=== PATIENT | female | born 1960 | race Caucasian/White ===

== ENCOUNTER → 2016-05-03 | Outpatient (CLI) | payer OTHER | LOC: VM.MRI 07:57 | PROVIDERS: ATTEND Family Medicine | DX: Z04.3 Encounter for examination and observation following other accident (principal); M47.816 Spondylosis without myelopathy or radiculopathy, lumbar region; R60.0 Localized edema; V89.2XXA Person injured in unspecified motor-vehicle accident, traffic, initial encounter | CPT/HCPCS: 72148 ==

== ENCOUNTER 2016-10-28 11:54 | Emergency (ER) | payer OTHER ==
--- NOTE | 2016-10-28 13:01 | EDM.PDOC ---
ED HPI GENERAL MEDICAL PROBLEM - General Chief Complaint: General Stated Complaint: FELL Time Seen by Provider: 10/28/16 12:24 Source of Information: Reports: Patient History Limitations: Reports: No Limitations - History of Present Illness INITIAL COMMENTS - FREE TEXT/NARRATIVE: Patient reports falling down 4 stairs this morning about an hour before coming in. She did hit her head on a shelf but did not lose consciousness, has no headaches, no nausea, no vomiting, no change in mentation or neurologic status. She did also hit her right shoulder and she does complain of some pain with movement to that as well as to her left foot. Some swelling and bruising to her foot. She has no other complaints. She did nut use anything for pain control before arriving here. Onset: Today Onset Date: 10/28/16 Onset Time: 11:00 Duration: Intermittent Location: Reports: Upper Extremity, Right, Lower Extremity, Left Quality: Reports: Ache Severity: Moderate Improves with: Reports: None Worsens with: Reports: Movement Associated Symptoms: Reports: No Other Symptoms - Related Data Allergies Allergy/AdvReac Type Severity Reaction Status Date / Time aloe vera Allergy Hives Verified 10/28/16 13:04 [From Aspercreme with Aloe] aspirin Allergy Hives Verified 10/28/16 13:04 Penicillins Allergy Anaphylactic Verified 10/28/16 13:04 Shock Sulfa (Sulfonamide Allergy Swollen Verified 10/28/16 13:04 Antibiotics) Tongue trolamine salicylate Allergy Hives Verified 10/28/16 13:04 [From Aspercreme with Aloe] levofloxacin [From Levaquin] AdvReac Muscle Verified 10/28/16 13:04 Aches Home Meds: Home Meds Amitriptyline [Elavil] 20 mg PO BEDTIME 06/10/13 [History] Benazepril [Lotensin] 40 mg PO DAILY 06/10/13 [History] Cholecalciferol (Vitamin D3) [Vitamin D] 2,000 unit PO DAILY 06/10/13 [History] Eletriptan [Relpax] 40 mg PO DAILY PRN 06/10/13 [History] Ipratropium/Albuterol Sulfate [Duoneb 0.5 MG-3 MG/3 ML] 3 ml INH QID PRN [History] PARoxetine [Paxil] 30 mg PO DAILY 06/10/13 [History] Pseudoephedrine [Sudafed 12 Hour] 120 mg PO Q12HR 06/10/13 [History] RABEprazole [Aciphex] 20 mg PO DAILY 06/10/13 [History] Topiramate [Trokendi Xr] 100 mg PO BID 06/10/13 [History] Acetaminophen/Caffeine [Excedrin Tension Headache] 3 tab PO ASDIRECTED 06/03/14 [History] Albuterol [Ventolin HFA] 1 puff PO BID PRN 06/03/14 [History] Pregabalin [Lyrica] 150 mg PO BID 06/29/14 [History] Cyclobenzaprine [Flexeril] 10 mg PO DAILY PRN 07/19/14 [History] Calcium Carbonate [Calcium] 1 tab PO DAILY 10/27/15 [History] Past Medical History - Past Surgical History Other Musculoskeletal Surgeries/Procedures:: right foot heglands deformaty 2011 Social & Family History - Tobacco Use Smoking Status *Q: Never Smoker Used Tobacco, but Quit: No Second Hand Smoke Exposure: No - Recreational Drug Use Recreational Drug Use: No ED ROS GENERAL - Review of Systems Review Of Systems: See Below Constitutional: Reports: No Symptoms HEENT: Reports: No Symptoms Respiratory: Reports: No Symptoms Cardiovascular: Reports: No Symptoms Endocrine: Reports: No Symptoms GI/Abdominal: Reports: No Symptoms : Reports: No Symptoms Musculoskeletal: Reports: Shoulder Pain (right), Foot Pain (left) Skin: Reports: Bruising Neurological: Reports: No Symptoms Psychiatric: Reports: No Symptoms Hematologic/Lymphatic: Reports: No Symptoms Immunologic: Reports: No Symptoms ED EXAM, GENERAL - Physical Exam Exam: See Below Exam Limited By: No Limitations General Appearance: Alert, WD/WN, Mild Distress Eye Exam: Bilateral Eye: EOMI, PERRL Ears: Normal TMs Nose: Normal Inspection Throat/Mouth: Normal Inspection, Normal Oropharynx Head: Atraumatic, Normocephalic Neck: Normal Inspection, Supple, Non-Tender, Full Range of Motion Respiratory/Chest: No Respiratory Distress, Lungs Clear, Normal Breath Sounds Cardiovascular: Normal Peripheral Pulses, Regular Rate, Rhythm GI/Abdominal: Normal Bowel Sounds, Soft, Non-Tender Extremities: Slow Capillary Refill, Arm Pain (right shoulder has pain on examination), Leg Pain (left foot has ecchymosis and swelling to the distal lateral aspect of the dorsal side of the foot) Neurological: Alert, Oriented, CN II-XII Intact, Normal Cognition, Normal Gait, Normal Reflexes, No Motor/Sensory Deficits Psychiatric: Normal Affect, Normal Mood Skin Exam: Warm, Dry, Intact, Ecchymosis (left distal foot) Lymphatic: No Adenopathy Course - Orders/Labs/Meds Orders: Active Orders 24 hr Category Date Time Status Ankle Min 3V Lt [CR] Stat Exams 10/28/16 12:31 Stop Req Foot Comp Min 3V Lt [CR] Stat Exams 10/28/16 12:35 Ordered Shoulder Comp Rt [CR] Stat Exams 10/28/16 12:31 Ordered - Radiology Interpretation Free Text/Narrative:: x-ray for right shoulder/left foot ordered Negative for fractures of shoulder, humerus or foot Departure - Departure Time of Disposition: 13:59 Disposition: Home, Self-Care 01 Condition: Good Clinical Impression: Contusion of foot, left - Discharge Information Instructions: Hematoma, [id number], Foot Contusion, [id number] Additional Instructions: Please follow up with your primary for any non acute causes for your nosebleeds Hold your aspirin until you see your primary You can call us with any questions or concerns Please follow the instructions provided for any future nosebleeds you may have - Problem List & Annotations (1) Contusion of foot, left SNOMED Code(s): 66273201 Code(s): S90.32XA - CONTUSION OF LEFT FOOT, INITIAL ENCOUNTER Status: Acute Priority: Low Qualifiers: Encounter type: initial encounter Qualified Code(s): S90.32XA - Contusion of left foot, initial encounter - Problem List Review Problem List Initiated/Reviewed/Updated: Yes - My Orders Last 24 Hours: My Active Orders 10/28/16 12:31 Ankle Min 3V Lt [CR] Stat Shoulder Comp Rt [CR] Stat 10/28/16 12:35 Foot Comp Min 3V Lt [CR] Stat - Assessment/Plan Last 24 Hours: My Active Orders 10/28/16 12:31 Ankle Min 3V Lt [CR] Stat Shoulder Comp Rt [CR] Stat 10/28/16 12:35 Foot Comp Min 3V Lt [CR] Stat Assessment:: contusion of left foot Plan: Please follow up with your primary for any non acute causes for your nosebleeds Hold your aspirin until you see your primary You can call us with any questions or concerns Please follow the instructions provided for any future nosebleeds you may have
[2016-10-28 13:16] VITALS: BP 116/78
== END 2016-10-28 14:10 | disposition home or self-care (01) ==
LOC: VM.ED 11:54
DX: S90.32XA Contusion of left foot, initial encounter (principal); M25.511 Pain in right shoulder; Z79.899 Other long term (current) drug therapy; Z88.0 Allergy status to penicillin; Z88.2 Allergy status to sulfonamides; Z88.1 Allergy status to other antibiotic agents; Z88.8 Allergy status to other drugs, medicaments and biological substances; Z88.6 Allergy status to analgesic agent; W10.8XXA Fall (on) (from) other stairs and steps, initial encounter
CPT/HCPCS: 73030-RT; 73630-LT; 99284

== ENCOUNTER 2018-11-13 19:14 | Emergency (ER) | payer BC, OTHER ==
--- NOTE | 2018-11-13 19:46 | EDM.PDOC ---
ED HPI GENERAL MEDICAL PROBLEM - General Chief Complaint: Lower Extremity Injury/Pain Stated Complaint: POST KNEE SURGERY PAIN Time Seen by Provider: 11/13/18 19:37 Source of Information: Reports: Patient History Limitations: Reports: No Limitations - History of Present Illness INITIAL COMMENTS - FREE TEXT/NARRATIVE: Patient comes into the emergency department with complaint of left knee discomfort. Patient recently had a scope done approximately 3 days ago. She states it's been healing well however that earlier this afternoon she started having muscle cramps in the lower leg. She did call call nurse and they suggested to be evaluated in a local emergency department. Patient states that the muscle cramping in the lower calf comes and goes. Currently the pain is gone. She denies any swelling, redness, or irrational pain. She states that she has not had any increased amount of swelling. She's had good range of motion in the lower extremity. She does have muscle relaxants at home and also has hydrocodone prescribed by her surgeon. She states that she's been taking them as prescribed however the cramping sensation in the leg is not relieved with that medication. Patient denies any injury or trauma to the lower extremity. She states that she has not fallen on it since surgery. Patient denies any other concerns or complaints. Onset: Gradual Quality: Reports: Other Severity: Mild Improves with: Reports: None, Immobilization, Other (rubbing the leg ) Worsens with: Reports: Movement Associated Symptoms: Reports: No Other Symptoms - Related Data Allergies Allergy/AdvReac Type Severity Reaction Status Date / Time aloe vera Allergy Hives Verified 01/23/17 08:45 [From Aspercreme with Aloe] aspirin Allergy Hives Verified 01/23/17 08:45 Penicillins Allergy Anaphylactic Verified 01/23/17 08:45 Shock Sulfa (Sulfonamide Allergy Swollen Verified 01/23/17 08:45 Antibiotics) Tongue trolamine salicylate Allergy Hives Verified 01/23/17 08:45 [From Aspercreme with Aloe] levofloxacin [From Levaquin] AdvReac Muscle Verified 01/23/17 08:45 Aches Home Meds: Home Meds Benazepril [Lotensin] 40 mg PO DAILY 06/10/13 [History] Cholecalciferol (Vitamin D3) [Vitamin D] 2,000 unit PO DAILY 06/10/13 [History] Eletriptan [Relpax] 40 mg PO DAILY PRN 06/10/13 [History] Ipratropium/Albuterol Sulfate [Duoneb 0.5 MG-3 MG/3 ML] 3 ml INH QID PRN [History] Pseudoephedrine [Sudafed 12 Hour] 120 mg PO Q12HR PRN 06/10/13 [History] RABEprazole [Aciphex] 20 mg PO DAILY 06/10/13 [History] Topiramate [Trokendi Xr] 100 mg PO BID 06/10/13 [History] Acetaminophen/Caffeine [Excedrin Tension Headache] 3 tab PO ASDIRECTED 06/03/14 [History] Albuterol [Ventolin HFA] 2 puff PO BID PRN 06/03/14 [History] Pregabalin [Lyrica] 150 mg PO BID 06/29/14 [History] Cyclobenzaprine [Flexeril] 10 mg PO TID PRN 07/19/14 [History] Calcium Carbonate [Calcium] 1 tab PO DAILY 10/27/15 [History] buPROPion HCl [Wellbutrin Xl] 150 mg PO DAILY 11/26/16 [History] Escitalopram [Lexapro] 10 mg PO DAILY 01/23/17 [History] Mometasone Furoate 200mcg [Asmanex HFA 200mcg] 2 puff INH BID 01/23/17 [History] Nortriptyline 25 mg PO BEDTIME 01/23/17 [History] Prednisone [IJD: Prednisone] 20 mg PO DAILY PRN 01/23/17 [History] Past Medical History Musculoskeletal History: Reports: Fibromyalgia Neurological History: Reports: Migraines Psychiatric History: Reports: Depression - Past Surgical History Female Surgical History: Reports: Other (See Below) Other Female Surgeries/Procedures: ovarian cysts/fibroids Other Musculoskeletal Surgeries/Procedures:: right foot heglands deformaty 2012 ED ROS GENERAL - Review of Systems Review Of Systems: ROS reveals no pertinent complaints other than HPI. Constitutional: Reports: No Symptoms HEENT: Reports: No Symptoms Respiratory: Reports: No Symptoms Cardiovascular: Reports: No Symptoms Endocrine: Reports: No Symptoms GI/Abdominal: Reports: No Symptoms : Reports: No Symptoms Skin: Reports: No Symptoms Neurological: Reports: No Symptoms Psychiatric: Reports: No Symptoms Hematologic/Lymphatic: Reports: No Symptoms ED EXAM, GENERAL - Physical Exam Exam: See Below Exam Limited By: No Limitations General Appearance: Alert, WD/WN, No Apparent Distress Head: Atraumatic, Normocephalic Respiratory/Chest: No Respiratory Distress, No Accessory Muscle Use Cardiovascular: Normal Peripheral Pulses, Regular Rate, Rhythm Peripheral Pulses: 3+: Popliteal (L), Popliteal (R), Dorsalis Pedis (L), Dorsalis Pedis (R) GI/Abdominal: Soft, Non-Tender, No Distention Back Exam: Normal Inspection, Full Range of Motion Extremities: Normal Range of Motion, Non-Tender, No Pedal Edema, Normal Capillary Refill, Leg Pain. No: Normal Inspection (healing puncture wounds around the knee ), Slow Capillary Refill, Joint Swelling, Dequan's Sign, Limited Range of Motion, Increased Warmth, Mottled, Pallor, Redness Neurological: Alert, Oriented Departure - Departure Time of Disposition: 19:50 Disposition: Home, Self-Care 01 Condition: Good Clinical Impression: Muscle cramp - Discharge Information *PRESCRIPTION DRUG MONITORING PROGRAM REVIEWED*: Not Applicable *COPY OF PRESCRIPTION DRUG MONITORING REPORT IN PATIENT TIMOTHY: Not Applicable Instructions: Muscle Cramps and Spasms, [id number] Referrals: Beth Young DO [Primary Care Provider] - Forms: ED Department Discharge Additional Instructions: 1. rest 2. increase water intake 3. Can take pickle juice to help with muscle cramps and bananas 4. Continue to complete your exercises as prescribed by your surgeon. 5. Compress, rest, and ice as it has been prescribed by your surgeon. 6. Take your medications muscle relaxer and pain medication as prescribed do not take more than prescribed or recommended 7. Follow up as needed or return if symptoms worsen 8. Call with any questions or concerns. - Problem List Review Problem List Initiated/Reviewed/Updated: Yes - Assessment/Plan Assessment:: 1. left leg cramps Plan: 1. [place] reviewed. Pt was given 20 tabs Hydrocodone-Acetaminaphen 5/325mg on . Lyrica 150mg 60tabs given. Pt also take muscle relaxers on a daily basis as needed. 2. Education provided and signs and symptoms given. 3. Follow up recommendation provided, activity, diet, ice, compression, medications administration as prescribed. 4. All questions and concerns addressed prior to discharge.
[2018-11-14 04:28] VITALS: BP 122/85; PULSE 108
== END 2018-11-13 19:57 | disposition home or self-care (01) ==
LOC: VM.ED 19:14
DX: R25.2 Cramp and spasm (principal); F32.9 Major depressive disorder, single episode, unspecified; Z79.899 Other long term (current) drug therapy; Z88.6 Allergy status to analgesic agent; Z88.2 Allergy status to sulfonamides; Z88.1 Allergy status to other antibiotic agents; Z88.8 Allergy status to other drugs, medicaments and biological substances
CPT/HCPCS: 99283

== ENCOUNTER 2020-03-27 12:24 | Emergency (ER) | payer BC ==
[2020-03-27] MEDS ORDERED: Sodium Chloride 0.9% 1,000 ML IV ONE ×2 (12:36→13:30)
[2020-03-27] MEDS ORDERED: Ondansetron 4 MG/2 ML SDV IV ONE (12:36)
[2020-03-27] MEDS ORDERED: Sodium Chloride 0.9% 10 ML Syringe FLUSH PRN (12:36)
[2020-03-27] MEDS ORDERED: Ondansetron 4 MG/2 ML SDV ONE (12:46)
[2020-03-27 13:14] LABS: CHLORIDE,CL 106 mmol/L (98-107); SODIUM,NA 140 mmol/L (136-145)
[2020-03-27 13:15] LABS: ANION GAP 15.2 mmol/L (10-20)
[2020-03-27 13:24] VITALS: BP 109/53; PULSE 95
--- NOTE | 2020-03-27 13:38 | EDM.PDOC ---
ED HPI GENERAL MEDICAL PROBLEM - General Chief Complaint: Gastrointestinal Problem Stated Complaint: COVID SYMPTOMS Time Seen by Provider: 03/27/20 13:25 Source of Information: Reports: Patient, RN, RN Notes Reviewed History Limitations: Reports: No Limitations - History of Present Illness INITIAL COMMENTS - FREE TEXT/NARRATIVE: Patient presents to ER with complaint of nausea, vomiting, severe diarrhea, lethargy. Patient states her has been hospitalized in [place] with Covid. States he will be released from the hospital today. States she has not eaten in the past 4 days, consistent nausea and vomiting. States she has had a cough, with some shortness of breath from time to time. Denies any chest pains. States she has had a fever from time to time, no fever today, denies chills. Patient states history of hypertension, fibromyalgia, and kidney dysfunction. Onset: Gradual Headache Pain Score (Numeric/FACES): 6 - Related Data Allergies Allergy/AdvReac Type Severity Reaction Status Date / Time aloe vera Allergy Hives Verified 03/27/20 13:09 [From Aspercreme with Aloe] aspirin Allergy Hives Verified 03/27/20 13:09 Penicillins Allergy Anaphylactic Verified 03/27/20 13:09 Shock Sulfa (Sulfonamide Allergy Swollen Verified 03/27/20 13:09 Antibiotics) Tongue trolamine salicylate Allergy Hives Verified 03/27/20 13:09 [From Aspercreme with Aloe] levofloxacin [From Levaquin] AdvReac Muscle Verified 03/27/20 13:09 Aches Home Meds: Home Meds Benazepril [Lotensin] 40 mg PO DAILY 06/10/13 [History] Cholecalciferol (Vitamin D3) [Vitamin D] 2,000 unit PO DAILY 06/10/13 [History] Eletriptan [Relpax] 40 mg PO Q2HR PRN 06/10/13 [History] Ipratropium/Albuterol Sulfate [Duoneb 0.5 MG-3 MG/3 ML] 3 ml INH QID PRN 06/10/13 [History] Pseudoephedrine [Sudafed 12 Hour] 120 mg PO Q12HR PRN 06/10/13 [History] RABEprazole [Aciphex] 20 mg PO DAILY 06/10/13 [History] Topiramate [Trokendi Xr] 100 mg PO BID 06/10/13 [History] Albuterol [Ventolin HFA] 2 puff PO Q4HR PRN 06/03/14 [History] Pregabalin [Lyrica] 150 mg PO BID 06/29/14 [History] Cyclobenzaprine [Flexeril] 10 mg PO TID 07/19/14 [History] Escitalopram [Lexapro] 20 mg PO DAILY 01/23/17 [History] Nortriptyline 25 mg PO BEDTIME 01/23/17 [History] Past Medical History Cardiovascular History: Reports: Hypertension Respiratory History: Reports: Asthma Musculoskeletal History: Reports: Fibromyalgia Neurological History: Reports: Migraines Psychiatric History: Reports: Depression - Infectious Disease History Infectious Disease History: Reports: Novel Coronavirus - Past Surgical History Female Surgical History: Reports: Other (See Below) Other Female Surgeries/Procedures: ovarian cysts/fibroids Musculoskeletal Surgical History: Reports: Arthroscopic Knee, Arthroscopic Procedure Other Musculoskeletal Surgeries/Procedures:: right foot heglands deformaty 2011 Social & Family History - Tobacco Use Tobacco Use Status *Q: Never Tobacco User ED ROS GENERAL - Review of Systems Review Of Systems: Comprehensive ROS is negative, except as noted in HPI. ED EXAM, GI/ABD - Physical Exam Exam: See Below Exam Limited By: No Limitations General Appearance: Alert, WD/WN, Lethargic, Mild Distress Eyes: Bilateral: Normal Appearance, EOMI Ears: Normal External Exam, Hearing Grossly Normal Nose: Normal Inspection Throat/Mouth: Normal Inspection, Normal Voice, No Airway Compromise Head: Atraumatic, Normocephalic Neck: Normal Inspection, Supple, Non-Tender, Full Range of Motion Respiratory/Chest: No Respiratory Distress, Lungs Clear, Normal Breath Sounds, No Accessory Muscle Use, Chest Non-Tender Cardiovascular: Normal Peripheral Pulses, Regular Rate, Rhythm, No Edema, No Gallop, No JVD, No Murmur, No Rub GI/Abdominal Exam: Normal Bowel Sounds, Soft, Tender (Female) Exam: Deferred Rectal (Female) Exam: Deferred Back Exam: Normal Inspection, Full Range of Motion, NT Extremities: Normal Inspection, Normal Range of Motion, Non-Tender, Normal Capillary Refill, No Pedal Edema Neurological: Alert, Oriented, CN II-XII Intact, Normal Cognition, Normal Gait, Normal Reflexes, No Motor/Sensory Deficits Psychiatric: Normal Affect, Normal Mood Skin Exam: Warm, Dry, Intact, Normal Color, No Rash Lymphatic: No Adenopathy Course - Vital Signs Last Recorded V/S: Last Vital Signs Temp 97.6 F 03/27/20 12:30 Pulse 95 03/27/20 12:30 Resp 16 03/27/20 12:30 BP 109/53 L 03/27/20 12:30 Pulse Ox 95 03/27/20 12:30 - Orders/Labs/Meds Orders: Active Orders 24 hr Category Date Time Status EKG Documentation Completion [RC] STAT Care 03/27/20 12:43 Active CULTURE BLOOD [BC] Stat Lab 03/27/20 12:40 Received CULTURE BLOOD [BC] Stat Lab 03/27/20 13:17 Received Sodium Chloride 0.9% [Saline Flush] Med 03/27/20 12:36 Active 10 ml FLUSH ASDIRECTED PRN Blood Culture x2 Reflex Set [OM.PC] Stat Oth 03/27/20 12:36 Ordered Peripheral IV Insertion Adult [OM.PC] Stat Oth 03/27/20 12:35 Ordered Medication Orders Sodium Chloride (Saline Flush) 10 ml FLUSH ASDIRECTED PRN PRN Reason: Keep Vein Open Labs: Laboratory Tests 03/27/20 03/27/20 03/27/20 Range/Units 12:30 12:40 12:40 WBC 7.0 (4.0-10.0) x10^3/uL RBC 4.87 (4.00-5.50) x10^6/uL Hgb 13.6 (12.0-16.0) g/dL Hct 41.6 (33.0-47.0) % MCV 85.4 (78.0-93.0) fL MCH 27.9 (26.0-32.0) pg MCHC 32.7 (32.0-36.0) g/dL RDW Coeff of Tran 14.9 (10.0-15.0) % Plt Count 187 (130-400) x10^3/uL Add Manual Diff Yes Neutrophils % (Manual) 61 (50-80) % Band Neutrophils % 2 (0-6) % Lymphocytes % (Manual) 12 L (25-50) % Reactive Lymphs % 14 H (0) % Monocytes % (Manual) 9 (2-11) % Eosinophils % (Manual) 1 (0-4) % Basophils % (Manual) 1 (0-1) % Nucleated RBCs 1 (0-5) /100WBC Vacuolated Monocytes 1+ slight H Toxic Granulation 1+ slight H Platelet Estimate Adequate Clumped Platelets Rare H PT 10.1 (9.5-12.3) SEC INR 0.9 L (2.0-3.5) Sodium (136-145) mmol/L Potassium (3.5-5.1) mmol/L Chloride (98-107) mmol/L Carbon Dioxide (21-32) mmol/L Anion Gap (10-20) mmol/L BUN (7-18) mg/dL Creatinine (0.55-1.02) mg/dL Est Cr Clr Drug Dosing Estimated GFR (MDRD) Glucose (74-106) mg/dL Lactic Acid (0.4-2.0) mmol/L Calcium (8.5-10.1) mg/dL Corrected Calcium (8.5-10.1) mg/dL Total Bilirubin (0.2-1.0) mg/dL AST (15-37) U/L ALT (14-59) U/L Alkaline Phosphatase (46-116) U/L Lactate Dehydrogenase (81-234) U/L C-Reactive Protein (<=0.9) mg/dL Total Protein (6.4-8.2) g/dL Albumin (3.4-5.0) g/dL Globulin Albumin/Globulin Ratio Urine Color (YELLOW) Urine Appearance (CLEAR) Urine pH (5.0-8.0) Ur Specific [place] Urine Protein (NEGATIVE) mg/dL Urine Glucose (UA) (NEGATIVE) mg/dL Urine Ketones (NEGATIVE) mg/dL Urine Occult Blood (NEGATIVE) Urine Nitrite (NEGATIVE) Urine Bilirubin (NEGATIVE) Urine Urobilinogen (0.2) EU/dL Ur Leukocyte Esterase (NEGATIVE) Urine RBC (NOT SEEN) /HPF Urine WBC (NOT SEEN) /HPF Ur Squamous Epith Cells (NEGATIVE) /HPF Urine Bacteria (NEGATIVE) /HPF Urine Mucus (NEGATIVE) /LPF SARS CoV-2 RNA Rapid SANTI Positive H (NEGATIVE) 03/27/20 03/27/20 03/27/20 Range/Units 12:40 12:40 14:15 WBC (4.0-10.0) x10^3/uL RBC (4.00-5.50) x10^6/uL Hgb (12.0-16.0) g/dL Hct (33.0-47.0) % MCV (78.0-93.0) fL MCH (26.0-32.0) pg MCHC (32.0-36.0) g/dL RDW Coeff of Tran (10.0-15.0) % Plt Count (130-400) x10^3/uL Add Manual Diff Neutrophils % (Manual) (50-80) % Band Neutrophils % (0-6) % Lymphocytes % (Manual) (25-50) % Reactive Lymphs % (0) % Monocytes % (Manual) (2-11) % Eosinophils % (Manual) (0-4) % Basophils % (Manual) (0-1) % Nucleated RBCs (0-5) /100WBC Vacuolated Monocytes Toxic Granulation Platelet Estimate Clumped Platelets PT (9.5-12.3) SEC INR (2.0-3.5) Sodium 140 (136-145) mmol/L Potassium 4.2 (3.5-5.1) mmol/L Chloride 106 (98-107) mmol/L Carbon Dioxide 23 (21-32) mmol/L Anion Gap 15.2 (10-20) mmol/L BUN 13 (7-18) mg/dL Creatinine 1.1 H (0.55-1.02) mg/dL Est Cr Clr Drug Dosing TNP Estimated GFR (MDRD) 50 Glucose 102 (74-106) mg/dL Lactic Acid 1.9 (0.4-2.0) mmol/L Calcium 8.1 L (8.5-10.1) mg/dL Corrected Calcium 8.82 (8.5-10.1) mg/dL Total Bilirubin 0.6 (0.2-1.0) mg/dL AST 22 (15-37) U/L ALT 33 (14-59) U/L Alkaline Phosphatase 99 (46-116) U/L Lactate Dehydrogenase 194 (81-234) U/L C-Reactive Protein 1.9 H (<=0.9) mg/dL Total Protein 7.2 (6.4-8.2) g/dL Albumin 3.1 L (3.4-5.0) g/dL Globulin 4.1 Albumin/Globulin Ratio 0.76 Urine Color Yellow (YELLOW) Urine Appearance Slightly cloudy H (CLEAR) Urine pH 7.0 (5.0-8.0) Ur Specific [place] 1.015 Urine Protein Negative (NEGATIVE) mg/dL Urine Glucose (UA) Negative (NEGATIVE) mg/dL Urine Ketones Negative (NEGATIVE) mg/dL Urine Occult Blood Negative (NEGATIVE) Urine Nitrite Negative (NEGATIVE) Urine Bilirubin Negative (NEGATIVE) Urine Urobilinogen 0.2 (0.2) EU/dL Ur Leukocyte Esterase Small H (NEGATIVE) Urine RBC 0-5 (NOT SEEN) /HPF Urine WBC 5-10 H (NOT SEEN) /HPF Ur Squamous Epith Cells Few H (NEGATIVE) /HPF Urine Bacteria Rare (NEGATIVE) /HPF Urine Mucus Occasional H (NEGATIVE) /LPF SARS CoV-2 RNA Rapid SANTI (NEGATIVE) Meds: Medications Generic Name Dose Route Start Last Admin Trade Name Freq PRN Reason Stop Dose Admin Sodium Chloride 10 ml 03/27/20 12:36 Saline Flush FLUSH ASDIRECTED PRN Keep Vein Open Discontinued Medications Generic Name Dose Route Start Last Admin Trade Name Freq PRN Reason Stop Dose Admin Sodium Chloride 1,000 mls @ 999 mls/hr 03/27/20 12:36 03/27/20 12:50 Normal Saline IV 03/27/20 13:36 999 mls/hr ONETIME ONE Administration Sodium Chloride 1,000 mls @ 999 mls/hr 03/27/20 13:30 03/27/20 13:41 Normal Saline IV 03/27/20 14:30 999 mls/hr ONETIME ONE Administration Ondansetron HCl 4 mg 03/27/20 12:36 03/27/20 12:50 Zofran IV 03/27/20 12:37 4 mg ONETIME ONE Administration Ondansetron HCl Confirm 03/27/20 12:46 03/27/20 12:51 Zofran Administered 03/27/20 12:47 Not Given Dose 4 mg .ROUTE .STK-MED ONE Departure - Departure Time of Disposition: 15:11 Disposition: Home, Self-Care 01 Condition: Fair Clinical Impression: COVID-19, Weakness Nausea and vomiting Qualifiers: Vomiting type: unspecified Vomiting Intractability: unspecified Qualified Code(s): R11.2 - Nausea with vomiting, unspecified Diarrhea Qualifiers: Diarrhea type: unspecified type Qualified Code(s): R19.7 - Diarrhea, unspecified - Discharge Information *PRESCRIPTION DRUG MONITORING PROGRAM REVIEWED*: No *COPY OF PRESCRIPTION DRUG MONITORING REPORT IN PATIENT TIMOTHY: No Instructions: Dehydration, Adult, [id number], Weakness, [id number], Nausea and Vomiting, Adult, [id number], COVID-19: How to Protect Yourself and Others - CDC, Prevent the Spread of COVID-19 if You Are Sick - CDC, Diarrhea, Adult, [id number], COVID-19 Frequently Asked Questions Forms: ED Department Discharge Additional Instructions: May use Imodium over the counter as directed for diarrhea May use Tylenol and/or Ibuprofen as directed for pain/fever May use Pedialyte for rehydration. RX: Azithromycin, Prednisone, Zofran FOllow up with your primary care provider in 1 week Return to the ER with worsening of symptoms Get up and walk around frequently to prevent weakness Sepsis Event Note (ED) - Evaluation Sepsis Screening Result: No Definite Risk - Focused Exam Vital Signs: Vital Signs Temp Pulse Resp BP Pulse Ox 03/27/20 12:30 97.6 F 95 16 109/53 L 95 - My Orders Last 24 Hours: My Active Orders 03/27/20 12:35 Peripheral IV Insertion Adult [OM.PC] Stat 03/27/20 12:36 Sodium Chloride 0.9% [Saline Flush] 10 ml FLUSH ASDIRECTED PRN Blood Culture x2 Reflex Set [OM.PC] Stat 03/27/20 12:40 CULTURE BLOOD [BC] Stat 03/27/20 12:43 EKG Documentation Completion [RC] STAT 03/27/20 13:17 CULTURE BLOOD [BC] Stat - Assessment/Plan Last 24 Hours: My Active Orders 03/27/20 12:35 Peripheral IV Insertion Adult [OM.PC] Stat 03/27/20 12:36 Sodium Chloride 0.9% [Saline Flush] 10 ml FLUSH ASDIRECTED PRN Blood Culture x2 Reflex Set [OM.PC] Stat 03/27/20 12:40 CULTURE BLOOD [BC] Stat 03/27/20 12:43 EKG Documentation Completion [RC] STAT 03/27/20 13:17 CULTURE BLOOD [BC] Stat
[2020-03-27] MEDS ORDERED: Ketorolac 30 MG/ML SDV IVPUSH ONE (15:28)
== END 2020-03-27 16:10 | disposition home or self-care (01) ==
LOC: VM.ED 12:24
DX: U07.1 COVID-19 (principal); I10 Essential (primary) hypertension; J45.909 Unspecified asthma, uncomplicated; F32.9 Major depressive disorder, single episode, unspecified; Z88.8 Allergy status to other drugs, medicaments and biological substances; Z88.2 Allergy status to sulfonamides; Z88.0 Allergy status to penicillin; Z88.1 Allergy status to other antibiotic agents; Z79.899 Other long term (current) drug therapy
CPT/HCPCS: 36415; 80053; 81001; 83605; 83615; 85025; 85610; 86140; 87040; 93005; 96374; 96375; 99284; 99285-25; J1885; J2405; J7030; U0002

== ENCOUNTER 2022-01-13 14:04 | Emergency (ER) | payer BC | END 2022-01-13 15:00 | disposition left against medical advice (07) | LOC: VM.ED 14:04 | DX: Z53.21 Procedure and treatment not carried out due to patient leaving prior to being seen by health care provider (principal) ==

== ENCOUNTER 2022-10-31 11:28 | Inpatient (IN) | payer BC ==
[2022-10-31] MEDS ORDERED: Albuterol HFA 18 Gm Inhaler INH PRN (14:23)
[2022-10-31] MEDS ORDERED: ELETRIPTAN 40 MG PO PRN (14:23)
[2022-10-31] MEDS ORDERED: Acetaminophen 325 MG Tab PO PRN (14:29)
[2022-10-31] MEDS: Nortriptyline 25 MG Cap PO SCH (20:19)
[2022-10-31] MEDS: traMADol 50 MG Tab PO PRN (20:19)
[2022-10-31] MEDS: Amitriptyline 25 MG Tab PO SCH (20:21)
[2022-10-31] MEDS: Pantoprazole 40 MG Tab.CR PO SCH (20:21)
[2022-10-31] MEDS: Sulfamethoxazole/Trimethoprim 800-160 MG Tab PO SCH (20:21)
[2022-10-31] MEDS: Cyclobenzaprine 10 MG Tab PO SCH (20:21)
[2022-10-31] MEDS: Apixaban 2.5 MG Tab PO SCH (20:21)
[2022-10-31] MEDS: Pregabalin 50 MG Cap PO SCH (20:21)
[2022-10-31] MEDS: Topiramate 50 MG Tab PO SCH (20:21)
[2022-10-31] MEDS: Albuterol 0.083% 2.5 MG/3 ML Neb Soln INH SCH (20:22)
[2022-10-31] MEDS ORDERED: TOPIRAMATE 100 MG PO SCH (21:00)
[2022-11-01] MEDS: Cholecalciferol (Vitamin D3) 25 MCG Tab PO SCH (08:07)
[2022-11-01] MEDS: Topiramate 50 MG Tab PO SCH ×2 (08:16→20:52)
[2022-11-01] MEDS: Lisinopril 20 MG Tab PO SCH (08:16)
[2022-11-01] MEDS: Lactobacillus Rhamnosus GG (Probiotic) Cap PO SCH (08:17)
[2022-11-01] MEDS: Cyclobenzaprine 10 MG Tab PO SCH ×3 (08:17→20:53)
[2022-11-01] MEDS: Pantoprazole 40 MG Tab.CR PO SCH ×2 (08:17→20:53)
[2022-11-01] MEDS: Pregabalin 50 MG Cap PO SCH ×2 (08:18→20:53)
[2022-11-01] MEDS: Albuterol 0.083% 2.5 MG/3 ML Neb Soln INH SCH ×2 (08:18→20:52)
[2022-11-01] MEDS: Citalopram 20 MG Tab PO SCH (08:18)
[2022-11-01] MEDS: Apixaban 2.5 MG Tab PO SCH ×2 (08:18→20:53)
[2022-11-01] MEDS: Sulfamethoxazole/Trimethoprim 800-160 MG Tab PO SCH ×2 (08:25→20:53)
[2022-11-01] MEDS: traMADol 50 MG Tab PO PRN (19:47)
[2022-11-01] MEDS: Nortriptyline 25 MG Cap PO SCH (20:53)
[2022-11-01] MEDS: Amitriptyline 25 MG Tab PO SCH (20:53)
[2022-11-02] MEDS: traMADol 50 MG Tab PO PRN (03:22)
[2022-11-02] MEDS: Lactobacillus Rhamnosus GG (Probiotic) Cap PO SCH (08:06)
[2022-11-02] MEDS: Citalopram 20 MG Tab PO SCH (08:07)
[2022-11-02] MEDS: Topiramate 50 MG Tab PO SCH ×2 (08:07→21:57)
[2022-11-02] MEDS: Cyclobenzaprine 10 MG Tab PO SCH ×3 (08:07→21:57)
[2022-11-02] MEDS: Lisinopril 20 MG Tab PO SCH (08:08)
[2022-11-02] MEDS: Sulfamethoxazole/Trimethoprim 800-160 MG Tab PO SCH ×2 (08:08→21:57)
[2022-11-02] MEDS: Cholecalciferol (Vitamin D3) 25 MCG Tab PO SCH (08:09)
[2022-11-02] MEDS: Albuterol 0.083% 2.5 MG/3 ML Neb Soln INH SCH ×2 (08:09→22:00)
[2022-11-02] MEDS: Pantoprazole 40 MG Tab.CR PO SCH ×2 (08:09→21:57)
[2022-11-02] MEDS: Apixaban 2.5 MG Tab PO SCH ×2 (08:09→21:57)
[2022-11-02] MEDS: Pregabalin 50 MG Cap PO SCH ×2 (08:09→21:57)
[2022-11-02] MEDS: Nortriptyline 25 MG Cap PO SCH (21:56)
[2022-11-02] MEDS: Amitriptyline 25 MG Tab PO SCH (21:57)
[2022-11-03] MEDS: traMADol 50 MG Tab PO PRN ×2 (02:13→21:23)
[2022-11-03] MEDS: Sulfamethoxazole/Trimethoprim 800-160 MG Tab PO SCH ×2 (08:19→20:29)
[2022-11-03] MEDS: Lisinopril 20 MG Tab PO SCH (08:19)
[2022-11-03] MEDS: Pregabalin 50 MG Cap PO SCH ×2 (08:19→20:29)
[2022-11-03] MEDS: Cholecalciferol (Vitamin D3) 25 MCG Tab PO SCH (08:20)
[2022-11-03] MEDS: Topiramate 50 MG Tab PO SCH ×2 (08:20→20:29)
[2022-11-03] MEDS: Cyclobenzaprine 10 MG Tab PO SCH ×3 (08:20→20:29)
[2022-11-03] MEDS: Lactobacillus Rhamnosus GG (Probiotic) Cap PO SCH (08:20)
[2022-11-03] MEDS: Apixaban 2.5 MG Tab PO SCH ×2 (08:21→20:29)
[2022-11-03] MEDS: Citalopram 20 MG Tab PO SCH (08:21)
[2022-11-03] MEDS: Pantoprazole 40 MG Tab.CR PO SCH ×2 (08:21→20:31)
[2022-11-03] MEDS: Albuterol 0.083% 2.5 MG/3 ML Neb Soln INH SCH ×2 (08:21→20:36)
[2022-11-03] MEDS ORDERED: Fluconazole 100 MG Tab PO ONE (18:30)
[2022-11-03] MEDS: Nortriptyline 25 MG Cap PO SCH (20:29)
[2022-11-03] MEDS: Amitriptyline 25 MG Tab PO SCH (20:31)
[2022-11-04] MEDS: Sulfamethoxazole/Trimethoprim 800-160 MG Tab PO SCH ×2 (08:07→20:34)
[2022-11-04] MEDS: Pregabalin 50 MG Cap PO SCH ×2 (08:08→20:34)
[2022-11-04] MEDS: Apixaban 2.5 MG Tab PO SCH ×2 (08:08→20:35)
[2022-11-04] MEDS: Cholecalciferol (Vitamin D3) 25 MCG Tab PO SCH (08:09)
[2022-11-04] MEDS: Lactobacillus Rhamnosus GG (Probiotic) Cap PO SCH (08:09)
[2022-11-04] MEDS: Citalopram 20 MG Tab PO SCH (08:10)
[2022-11-04] MEDS: Cyclobenzaprine 10 MG Tab PO SCH ×3 (08:10→20:33)
[2022-11-04] MEDS: Topiramate 50 MG Tab PO SCH ×2 (08:10→20:35)
[2022-11-04] MEDS: Pantoprazole 40 MG Tab.CR PO SCH ×2 (08:11→20:33)
[2022-11-04] MEDS: Lisinopril 20 MG Tab PO SCH (08:11)
[2022-11-04] MEDS: Albuterol 0.083% 2.5 MG/3 ML Neb Soln INH SCH ×2 (08:17→20:36)
[2022-11-04] MEDS: valACYclovir 1,000 MG Tab PO SCH ×2 (17:33→20:38)
[2022-11-04] MEDS: traMADol 50 MG Tab PO PRN (17:35)
[2022-11-04] MEDS: Al and Mag Hydroxide/Diphenhydramine/Lidocaine/Simethicone 237 ML Bottle PO SCH ×2 (17:36→20:33)
[2022-11-04] MEDS: Nortriptyline 25 MG Cap PO SCH (20:35)
[2022-11-04] MEDS: Amitriptyline 25 MG Tab PO SCH (20:35)
[2022-11-05] MEDS: Al and Mag Hydroxide/Diphenhydramine/Lidocaine/Simethicone 237 ML Bottle PO SCH ×3 (01:08→08:37)
[2022-11-05 06:37] VITALS: PULSE 90
[2022-11-05] MEDS: traMADol 50 MG Tab PO PRN (06:51)
[2022-11-05] MEDS: Citalopram 20 MG Tab PO SCH (08:37)
[2022-11-05] MEDS: Lactobacillus Rhamnosus GG (Probiotic) Cap PO SCH (08:37)
[2022-11-05] MEDS: Apixaban 2.5 MG Tab PO SCH (08:37)
[2022-11-05] MEDS: Pantoprazole 40 MG Tab.CR PO SCH (08:38)
[2022-11-05] MEDS: valACYclovir 1,000 MG Tab PO SCH (08:38)
[2022-11-05] MEDS: Cyclobenzaprine 10 MG Tab PO SCH (08:38)
[2022-11-05] MEDS: Lisinopril 20 MG Tab PO SCH (08:39)
[2022-11-05] MEDS: Cholecalciferol (Vitamin D3) 25 MCG Tab PO SCH (08:39)
[2022-11-05] MEDS: Pregabalin 50 MG Cap PO SCH (08:39)
[2022-11-05] MEDS: Topiramate 50 MG Tab PO SCH (08:39)
[2022-11-05 08:40] VITALS: BP 128/75
[2022-11-05] MEDS: Albuterol 0.083% 2.5 MG/3 ML Neb Soln INH SCH (08:40)
== END 2022-11-05 09:10 | disposition home or self-care (01) | DRG 861 ==
LOC: VM.MS 13:56
PROVIDERS: ADMIT Nurse Practitioner Family; ATTEND Family Medicine
DX: R53.1 Weakness (principal); I10 Essential (primary) hypertension; K21.9 Gastro-esophageal reflux disease without esophagitis; J45.20 Mild intermittent asthma, uncomplicated; E66.01 Morbid (severe) obesity due to excess calories; G43.909 Migraine, unspecified, not intractable, without status migrainosus; Z68.41 Body mass index [BMI] 40.0-44.9, adult; F51.01 Primary insomnia; M79.7 Fibromyalgia; E88.81 Metabolic syndrome and other insulin resistance; M54.81 Occipital neuralgia; N39.0 Urinary tract infection, site not specified; F41.8 Other specified anxiety disorders; F32.5 Major depressive disorder, single episode, in full remission; B00.89 Other herpesviral infection; Z98.890 Other specified postprocedural states; Z87.891 Personal history of nicotine dependence; Z88.0 Allergy status to penicillin; Z88.8 Allergy status to other drugs, medicaments and biological substances
CPT/HCPCS: 94640; 97110-GP; 97116-GP; 97161-GP; 97165-GO; 97535-GO; A9270-GY; J7613-GY

== ENCOUNTER 2023-01-17 20:17 | Emergency (ER) | payer BC ==
[2023-01-17] MEDS ORDERED: Ketorolac 30 MG/ML SDV IM ONE (20:23)
[2023-01-17] MEDS ORDERED: Take Home: traMADol 50 MG, 4 Tab Pack PO ONE (21:39)
[2023-01-18 01:49] VITALS: BP 155/70; PULSE 94
== END 2023-01-17 21:55 | disposition home or self-care (01) ==
LOC: VM.ED 20:17
DX: M54.50 Low back pain, unspecified (principal); I10 Essential (primary) hypertension; Z88.6 Allergy status to analgesic agent; Z88.0 Allergy status to penicillin; Z88.8 Allergy status to other drugs, medicaments and biological substances; Z91.018 Allergy to other foods; Z88.1 Allergy status to other antibiotic agents; Z79.899 Other long term (current) drug therapy; Z79.01 Long term (current) use of anticoagulants; Z86.16 Personal history of COVID-19
CPT/HCPCS: 96372; 99283; A9270-GY; J1885

== ENCOUNTER 2025-01-23 17:04 | Emergency (ER) | payer BC, MEDICARE ==
[2025-01-23 17:55] LABS: BASOPHILS ABSOLUTE AUTO 0.1 x10^3/uL (0.0-0.2); BASOPHILS PERCENT AUTO 0.5 % (0.2-1.2); EOSINOPHILS ABSOLUTE AUTO 0.4 x10^3/uL (0.0-0.5); EOSINOPHILS PERCENT AUTO 2.4 % (0.0-4.0); IMMATURE GRAN ABSOLUTE AUTO 0.03 x10^3/uL (0.00-0.07); IMMATURE GRAN PERCENT AUTO 0.20 % (0.00-0.43); LYMPHOCYTES ABSOLUTE AUTO 3.4 x10^3/uL (1.0-4.8); LYMPHOCYTES PERCENT AUTO 20.8 % (25.0-50.0); MONOCYTES ABSOLUTE AUTO 0.9 x10^3/uL (0.0-0.8); MONOCYTES PERCENT AUTO 5.4 % (2.0-11.0); NEUTROPHILS ABSOLUTE AUTO 11.4 x10^3/uL (1.8-7.7); NEUTROPHILS PERCENT AUTO 70.7 % (50.0-80.0); PLATELET COUNT,PLT 343 x10^3/uL (130-400); RED BLOOD CELL COUNT 5.15 x10^6/uL (4.00-5.50); WHITE BLOOD CELL COUNT,WBC 16.2 x10^3/uL (4.0-10.0)
[2025-01-23 18:10] VITALS: BP 128/83; PULSE 104
[2025-01-23 18:11] LABS: BLOOD UREA NITROGEN,BUN 15 mg/dL (7-18); CARBON DIOXIDE,CO2 26 mmol/L (21-32); CHLORIDE,CL 106 mmol/L (98-107); CREATININE 1.4 mg/dL (0.55-1.02); GLUCOSE RANDOM 130 mg/dL (70-99); POTASSIUM,K 3.7 mmol/L (3.5-5.1); SODIUM,NA 140 mmol/L (136-145)
[2025-01-23 18:12] LABS: ESTIMATED GFR 41 mL/min (>=60)
[2025-01-23] MEDS: Take Home: Clindamycin HCl 150 MG Cap, 6 Cap Pack PO ONE (18:38)
[2025-01-23] MEDS: Take Home: oxyCODONE HCl 5 MG Tab, 5 Tab Pack PO ONE (18:51)
== END 2025-01-23 18:55 | disposition home or self-care (01) ==
LOC: VM.ED 17:04
DX: S92.415A Nondisplaced fracture of proximal phalanx of left great toe, initial encounter for closed fracture (principal); L02.612 Cutaneous abscess of left foot; L03.032 Cellulitis of left toe; I10 Essential (primary) hypertension; Z79.899 Other long term (current) drug therapy; Z79.51 Long term (current) use of inhaled steroids; Z79.01 Long term (current) use of anticoagulants; Z88.8 Allergy status to other drugs, medicaments and biological substances; Z88.6 Allergy status to analgesic agent; Z88.0 Allergy status to penicillin; Z86.16 Personal history of COVID-19; W22.8XXA Striking against or struck by other objects, initial encounter
CPT/HCPCS: 36415; 73630-LT; 80048; 85025; 99283; 99284; A9270-GY